=== PATIENT | female | born 1965 | race Caucasian/White ===

== ENCOUNTER 2016-10-27 13:22 | Inpatient (IN) | payer OTHER ==
[~2016-10-27] VITALS: Ht 162.6 cm; Wt 122.8 kg
--- NOTE | ~2016-10-27 | EKG ---
PATIENT: MARC GOMES UNIT #: [id number] Ventricular Rate: 91 BPM Atrial Rate: 91 BPM P-R Interval: 180 ms QRS Duration: 80 ms Q-T Interval: 358 ms QTC Calculation(Bezet): 440 ms P [place]: 69 degrees Calculated R [place]: 46 degrees Calculated T [place]: 56 degrees Diagnosis Line: Normal sinus rhythm Diagnosis Line: Right atrial enlargement Diagnosis Line: Borderline ECG Diagnosis Line: No previous ECGs available Diagnosis Line: Confirmed by MITRA BANKS MD ([id number]) on 10/27/2016 Diagnosis Line: 6:06:27 PM INTERPRETING MD: DARREN MOTLEY
--- NOTE | ~2016-10-27 | US77 ---
[facility] A Service of [facility] RADIOLOGY TEXT RESULTS PATIENT: MARC GOMES LOCATION: [facility] 319-01 : 63 UNIT #: [id number] AGE: [address]: Bill Parker MD SEX: F ORDER DR: [id number] [facility] [address] [facility]. [place], [place] [address] [id number] I MR#: [id number] Acc #: [id number] NAME: MARC GOMES. : 1965 SEX: F STUDY DATE/TIME: 10/28/2016 17:05 UNIT: [address] [place] [address] ROOM: [facility] STUDY DESCRIPTION: US Kidney Bilateral Complete Attending Physician: Linh Parker M.D. Ordering Physician: Dena Noguera M.D. Primary Care Physician: Primary Care Physician No MEDICAL IMAGING REPORT This report is preliminary unless electronic signature is present EXAM Renal ultrasound complete 10/28/2016 HISTORY Incontinence and flank pain, back pain for 1 year worsening 4 days ago. Diabetes, hypertension and hyperlipidemia. Abnormal renal function tests. Elevated BUN of 49, elevated creatinine of 2.7. Abnormally low GFR of 19.6 today. Acute renal insufficiency. FINDINGS The right kidney is poorly visualized due to excessive bowel gas. The left kidney measures 10.7 cm in longitudinal dimensions. There is no evidence of hydronephrosis or nephrolithiasis. No cystic or solid mass lesions are seen on the left kidney and there is normal renal cortical echogenicity. Images of the bladder are normal. IMPRESSION 1. Exam is limited as the right kidney was poorly visualized. 2. The left kidney is normal in appearance. 3. The bladder is normal in appearance. Dictated by... Rcoael Mcfadden M.D. THIS IS AN ELECTRONICALLY VERIFIED REPORT Rocael Mcfadden M.D. at 10/29/2016 2:15 PM WILBERTO/laura TD: 10/29/2016 09:17 JOB #: [id number] MEDICAL IMAGING REPORT [facility] A Service of [facility] RADIOLOGY TEXT RESULTS PATIENT: MARC GOMES LOCATION: [facility] 319-01 : 63 UNIT #: [id number] AGE: [address]: iBll Parker MD SEX: F ORDER DR: Page 1 of 1 COPY
--- NOTE | ~2016-10-27 | CO ---
Unit #: [id number] #: [id number] Patient: MARC GOMES [id number] [facility]. [place], [place] [address] [id number] I MR#: [id number] NAME: MARC GOMES ROOM: 319 Age: 50 Sex: F Admission Date: 10/27/2016 : 1965 Attending Physician: Linh Parker M.D. Primary Care Physician: No Primary Care Physician CONSULTATION REPORT HISTORY OF PRESENT ILLNESS This is a 50-year-old lady with a past medical history of hypertension, diabetes mellitus, muscular spinal history, history of anxiety, with possible history of COPD, who presents with a fall from a picnic table approximately two days ago. No issues. However, this morning the patient woke up with significant back pain, difficulty walking and complained of worsening shortness of air, therefore she presents to the ER with complaint, going around both sides of the back. The lumbar spine and hip x-rays were unremarkable. Patient was not having any fevers, no chills, no sweats, no nausea, no vomiting, no constipation, no lightheadedness. She was having difficulty walking. The right leg was not moving properly so she had to prop herself up. Patient has no particular position where it hurts. She is not having any cough. She is not having any productive sputum. Patient was noted to have elevated renal insufficiency. Patient had a previous history of renal insufficiency; however, she never followed up and has not had any problems since per her. The patient has a history of diabetes mellitus, otherwise no issues. She is being admitted for renal insufficiency, back strain and possible COPD exacerbation. REVIEW OF SYSTEMS Review of systems is as per the history of present illness. PAST MEDICAL HISTORY Past medical history is significant for chronic hypertension, diabetes mellitus, episode of renal insufficiency, questionable history of COPD. PAST SURGICAL HISTORY Surgical history is negative. SOCIAL HISTORY The patient is a former smoker, denies alcohol, denies any sort of polysubstance use. FAMILY HISTORY Patient has a family history of lung cancer and a mother who had chronic hypertension. PHYSICAL EXAMINATION VITAL SIGNS: T-current 98.8, pulse 112, respiratory rate 22, blood pressure 110/64, sating 94% on 2 L nasal cannula. Ins and outs 500 in, x2 urine out. HEENT: Extraocular movements are intact. The patient is Mallampati III. NECK: Neck is greater than 16 inches in circumference. Unit #: [id number] #: [id number] Patient: MARC GOMES CHEST: Shows decreased breath sounds bilaterally. CARDIOVASCULAR EXAM: Regular rate, no gallop. ABDOMEN: Soft, nontender and nondistended. EXTREMITIES: Show edema +1 to +2. SKIN: Patient has some flushing of the face and neck. This appears to be more than usual. Patient denies itchiness, fevers. DIAGNOSTIC STUDIES LABORATORY: The white count is 6.8, hemoglobin 14.3, platelets of 321, BUN and creatinine 49/2.7, glucose 352, 486. ASSESSMENT AND PLAN 1. Acute renal insufficiency, elevated BUN and creatinine: Patient may be somewhat dehydrated. The creatine kinase was only 178 so there is no much concern for rhabdo. Patient is being gently hydrated. Nephrology is seeing. 2. Diabetes: Patient has elevated hemoglobin A1C at 11.1. Will need to increase the sliding scale insulin. 3. Possible pneumonia: We are waiting on procalcitonin. 4. Chronic obstructive pulmonary disease: The patient is being treated with azithromycin, nebs and Solu-Medrol. Thank you very much for this consult and allowing us to participate in the care of this patient. Dictated by... Linh Parker M.D. IAN/rosa TD: 10/28/2016 17:53 JOB #: [id number] CONSULTATION REPORT Page 1 of 1 X Bill Parker MD CONSULTATION REPORT
--- NOTE | ~2016-10-27 | CR181 ---
[facility] A Service of [facility] RADIOLOGY TEXT RESULTS PATIENT: MARC GOMES LOCATION: [facility] 319-01 : 63 UNIT #: [id number] AGE: [address]: Bill Parker MD SEX: F ORDER DR: [id number] [facility] [address] [facility]. [place], [place] [address] [id number] E MR#: [id number] Acc #: [id number] NAME: MARC GOMES : 1965 SEX: F STUDY DATE/TIME: 10/27/2016 16:14 UNIT: [facility] ROOM: STUDY DESCRIPTION: CR Lumbar Spine 2 or 3 Views Attending Physician: Bertha Gutierrez M.D. Ordering Physician: Bertha Gutierrez M.D. Primary Care Physician: Primary Care Physician No MEDICAL IMAGING REPORT This report is preliminary unless electronic signature is present EXAM Three views lumbar spine. DATE 10/27/2016 HISTORY Low back pain since yesterday. Patient fell. COMPARISON CT abdomen and pelvis bone windows 03/20/2015. FINDINGS There is approximately 8 mm anterolisthesis of L5 upon S1, which is not thought to be significantly changed from the CT of the abdomen and pelvis of 03/20/2015. There is mild diminished disc height at this level. No spondylolytic defects are seen. Findings may be the result of degenerative facet arthropathy, which can also be seen to better advantage at L5-S1 on the previous CT exam. No acute fracture is seen. There is degenerative endplate spurring and sclerosis at T10-11. IMPRESSION 1. Grade I anterolisthesis L5 upon S1 thought to be the result of degenerative facet arthropathy at that level, with mild diminished disc height at L5-S1. The findings are thought to be similar to the 03/20/2015 CT abdomen and pelvis bone windows. 2. No acute lumbar spine findings. Dictated by... [facility] A Service of [facility] RADIOLOGY TEXT RESULTS PATIENT: MARC GOMES LOCATION: [facility] 319-01 : 63 UNIT #: [id number] AGE: [address]: Bill Parker MD SEX: F ORDER DR: Jen Gresham M.D. THIS IS AN ELECTRONICALLY VERIFIED REPORT Jen Gresham M.D. at 10/28/2016 9:55 AM LLH/michelle TD: 10/27/2016 19:03 JOB #: [id number] MEDICAL IMAGING REPORT Page 1 of 1 COPY
--- NOTE | ~2016-10-27 | CR72 ---
[facility] A Service of [facility] RADIOLOGY TEXT RESULTS PATIENT: MARC GOMES LOCATION: [facility] 319-01 : 63 UNIT #: [id number] AGE: [address]: Bill Parker MD SEX: F ORDER DR: [id number] [facility] [address] [facility]. [place], [place] [address] [id number] I MR#: [id number] Acc #: [id number] NAME: MARC GOMES : 1965 SEX: F STUDY DATE/TIME: 10/28/2016 6:22 UNIT: [address] ROOM: [facility] STUDY DESCRIPTION: CR Chest Single View Portable Attending Physician: Linh Parker M.D. Ordering Physician: Linh Parker M.D. Primary Care Physician: No Primary Care Physician MEDICAL IMAGING REPORT This report is preliminary unless electronic signature is present EXAM Portable chest, 10/28 INDICATION Shortness of air, COPD. Symptoms for 1 day. Patient had a fall yesterday. FINDINGS AP portable chest is compared with 10/27/2016. Heart remains enlarged. Lung volumes remain low. There is continued linear scarring or atelectasis right midlung and left base. No pneumothorax is seen. There is an old left posterolateral seventh rib fracture. IMPRESSION Stable cardiomegaly with low-volume inspiration. Stable linear atelectasis or scar right mid lung and left base. Dictated by... Froy Meredith Jr., M.D. THIS IS AN ELECTRONICALLY VERIFIED REPORT Froy Meredith Jr., M.D. at 10/28/2016 3:47 PM RAFAELA/jayant TD: 10/28/2016 10:19 JOB #: [id number] MEDICAL IMAGING REPORT Page 1 of 1 COPY
--- NOTE | ~2016-10-27 | DS ---
Unit #: [id number] #: [id number] Patient: MARC GOMES [id number] [address] [place], [place] [address] [id number] I MR#: [id number] NAME: MARC GOMES. ROOM: 319 Age: 50 Sex: F Admission Date: 10/27/2016 : 1965 Discharge Date: 11/02/2016 Attending Physician: Linh Parker M.D. DISCHARGE SUMMARY REASON FOR ADMISSION 1. Back pain. 2. Chronic obstructive pulmonary disease exacerbation. 3. Acute renal insufficiency. 4. Poorly-controlled hypertension. HISTORY OF PRESENT ILLNESS This is a 50-year-old lady with a history of COPD who presented to the emergency room complaining of significant back pain. She had fallen off of a bench earlier. There was no evidence of significant swelling of the back. She did not have any trauma to her spine. The patient was short of breath; therefore, she was admitted for an episode of acute bronchitis. Creatinine is 3.5. Patient has a history of having elevated creatinine, however, has not followed up with primary care or Nephrology in three years since that last episode. HOSPITAL COURSE Chronic obstructive pulmonary disease. Patient was put on steroids and a short course of azithromycin. There was no evidence of significant cough productive of sputum. Therefore, after five days his azithromycin was discontinued. Patient was changed to oral steroids. These slowly decreased and will be sent home on a taper. Acute renal insufficiency. Appreciate Dr. Noguera's consultation. The patient was gently hydrated. There is likely some chronic renal insufficiency on top of acute. Patient improved. The patient's lisinopril was restarted at the end of the stay to get her blood pressure under control. Back pain. Patient was placed on Flexeril and has not complained of back pain throughout her hospital stay. Hypertension. Patient's discharge was delayed for several days due to poorly-controlled diastolic hypertension. Appreciate Dr. Noguera's assistance. Started on hydralazine, started on Lasix, and then her lisinopril was restarted toward the end of her hospital stay. DISCHARGE MEDICATIONS 1. Albuterol 2 puffs q.4 hours as needed for shortness of breath. 2. Gabapentin 300 mg p.o. twice daily. 3. Sertraline 100 mg daily. 4. Metformin 500 mg daily before breakfast. 5. Symbicort 2 puffs b.i.d. Unit #: [id number] #: [id number] Patient: MARC GOMES 6. Ibuprofen p.r.n. 7. Meloxicam 15 mg p.o. daily p.r.n. 8. Cyclobenzaprine 10 mg p.o. twice daily p.r.n. for 10 days. 9. Vitamin D 2000 units p.o. daily. 10. Amlodipine 10 mg p.o. daily. 11. Fenofibrate 145 mg p.o. daily. 12. Crestor 40 mg at bedtime. 13. Lisinopril 40 mg daily. 14. Hydralazine 25 mg p.o. 3 times daily. 15. Furosemide 20 mg p.o. daily. DIET Patient is to have a no concentrated sweets diet. FOLLOWUP 1. With primary care doctor within two weeks. 2. With our office in approximately three weeks. 3. With Dr. Noguera in approximately three to four weeks. 1. Dictated by... Cassidy Rubin TD: 11/03/2016 20:34 JOB #: [id number] DISCHARGE SUMMARY Page 1 of 1 X Bill Parker MD X DISCHARGE SUMMARY
--- NOTE | ~2016-10-27 | BMI ---
[facility] Nutrition Therapy DATE: 10/28/16 Patient: MARC GOMES Physician: SANTO Address: [address] [place] [address] Room/Bed: [address] [place] [address], Zip: [place] [address] Admit Date: 10/27/16 Date of : [birth year] Height: 5 4 Weight: 265 120.2 HIGH BMI NOTE: ANTHROPOMETRICS: HT: 64" WT: 120.2 KG BMI: 45.5 DIET: CONSISTENT CARBOHYDRATE RECOMMENDATIONS: 1. ADD A HEART HEALTHY DIET RESTRICTION TO PROMOTE GRADUAL WEIGHT LOSS TOWARDS A HEALTHY BMI. Respectfully, DELANO ENAMORADO RD, LD Food and Nutritional Services [facility] [place] [facility] cc: client file
--- NOTE | ~2016-10-27 | CO ---
Unit #: [id number] #: [id number] Patient: MARC GOMES [id number] [address] [address] [id number] I MR#: [id number] NAME: MARC GOMES. ROOM: 319 Age: 50 Sex: F Admission Date: 10/27/2016 : 1965 Attending Physician: Linh Parker M.D. Consultation Date: 10/28/2016 CONSULTATION REPORT REASON FOR CONSULTATION Renal insufficiency. Thank you very much for asking me to see this patient in consultation. HISTORY OF PRESENT ILLNESS Ms. Gomes is a 50-year-old female, who has a history of diabetes for approximately 10 years, history of hypertension, history of obesity, who presented to the hospital with lower back pain as well as some increased shortness of breath. She was admitted for possible COPD exacerbation. She was noted upon presentation to have a BUN and creatinine of 47 and 3.9. Because of this, I was asked to see the patient. 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 In reviewing of her records in 03/2015, showed a creatinine of 1.1. At that time, she had a urinalysis showed no rbc's or wbc's, although she had 1+ protein and 100 of glucose in her urine. In 11/2006, showed a creatinine of 1.0. She has been on Mobic and intermittent ibuprofen in the past and she says mainly Mobic in last 3+ weeks, although "it does not help." She states she did have a lot of nausea, vomiting, and occasional diarrhea on Friday, but that improved over the weekend. She denies any chest pain, any severe abdominal pain. She denies any burning when she urinates, but she states she urinates "a lot." PAST MEDICAL HISTORY History of diabetes mellitus x10 years, history of hypertension, history of hyperlipidemia, history of esophagitis. MEDICATIONS At home include Neurontin 600 mg b.i.d., Zestril 20 mg a day, metformin, Mobic, fenofibrate, Crestor. Here, she is on Zoloft was 200 mg a day, I lowered it to 100 mg a day. She is on Pepcid, amlodipine 10 mg a day, vitamin D, Zithromax, Lovenox, insulin, and Solu-Medrol. FAMILY HISTORY Noncontributory. SOCIAL HISTORY She still smokes. She says she occasional drinks alcohol maybe 2 to 3 drinks a week or so. She denies any IV drugs. REVIEW OF SYSTEMS She denies any fevers, chills, visual problems, sinus problems, cough, hemoptysis, sore throat, difficulty swallowing. No neck pain or neck Unit #: [id number] #: [id number] Patient: MARC GOMES stiffness. No chest pain, chest heaviness, or palpitations. She has some increasing shortness of breath, although she says it has been going on for a while. She denies any abdominal pain. She did have nausea and vomiting. No significant diarrhea may be a little bit. She denies any burning when she urinates. She denies any lower extremity swelling. She denies any recent seizures or strokes. PHYSICAL EXAMINATION VITAL SIGNS: T-max is 98.8, pulse 84 to 112, blood pressure 97 to 127 over 59 to 109. HEENT: She is normocephalic and atraumatic. Pupils are equal, round, and reactive to light. Extraocular muscles are intact. Hearing appears to be normal. Mouth is clear. No erythema. No exudate. NECK: Supple. No JVD. CARDIAC: She has regular rhythm without a rub. No S3 or S4. LUNGS: Sound fairly clear bilaterally. ABDOMEN: Obese, bowel sounds positive, nontender, soft. EXTREMITIES: She has no lower extremity swelling. Her pulses are intact in lower extremities. JOINTS: No joint pain or joint swelling. SKIN: She has sunburn on her face and shoulders. : Deferred. DIAGNOSTIC STUDIES LABORATORY RESULTS: Yesterday showed sodium 133, potassium 4.9, chloride is 96, bicarb is 23, BUN and creatinine 47 and 3.9 with a glucose of 178, calcium is 10.0, albumin is 4.2, alkaline phosphatase 41. CPK is 178. Hemoglobin A1c is 11. Hemoglobin is 14.3, white count 6800, platelets 321,000. Today her BUN creatinine 49 and 2.7 with a sodium is 128 with a glucose up to 347, potassium 5.3, bicarb is 21, calcium is 10.2. IMAGING STUDIES: Chest x-ray showed cardiomegaly. ASSESSMENT AND PLAN 1. Acute kidney injury. This is a lady who has acute renal failure most likely related to combination of Mobic volume depletion on top of an MARIALUISA inhibitor, also possible osmotic diuresis from hyperglycemia versus other. Certainly, her creatinine is improved some today. I agree with IV fluids and normal saline currently. She did have 1+ protein a year or so ago and she could have some underlying diabetic nephropathy as well. Due to the hypercalcemia and the acute renal insufficiency, I would like to check serum protein immunofixation, I would like to check a repeat UA, culture and sensitivity, check urine random protein to creatinine, check urine sodium. Follow strict I's and Os and will continue to follow. I am going to go ahead and check some serology studies, although she had no hematuria 1-1/2 years ago. I want to check some KALPANA, ANCA, anti-GBM, C3 and C4 as well, just to rule out other causes of renal insufficiency. For now, I agree with holding her Zestril, but once her renal function and volume status improves, we will certainly restart that. We will try to avoid nonsteroidals, Mobic, Celebrex, etc. in the future. We will check renal ultrasound to rule out obstruction and other gross abnormalities and we will follow. 2. Hyperkalemia. The patient's potassium is 5.3, that is most likely related to hyperglycemia and acidosis and should correct as her sugars improve. 3. Hyponatremia. The patient with low sodium. Again, most likely Unit #: [id number] #: [id number] Patient: MARC GOMES related to cellular shifts from hyperglycemia and renal insufficiency. She is now on normal saline and should improve as sugars improved as well. 4. Diabetes mellitus. 5. Hypertension. Again, hold MARIALUISA inhibitor for now until renal function improves and then restart. 6. Shortness of breath, possible chronic obstructive pulmonary disease exacerbation versus other. We will defer workup and treatment to Pulmonary. Dictated byJie Noguera M.D. NGHIA/gerard TD: 10/29/2016 02:29 JOB #: [id number] CONSULTATION REPORT Page 1 of 1 X Anamaria Noguera MD CONSULTATION REPORT
--- NOTE | ~2016-10-27 | A ---
[facility] Nutrition Therapy DATE: 10/29/16 Patient: MARC GOMES Physician: SANTO Address: [address] [place] [address] Room/Bed: [address] [place] [address], Zip: [place] [address] Admit Date: 10/27/16 Date of : [birth year] Height: 5 4 Weight: 272 123.4 NUTRITIONAL ASSESSMENT: REASON: Consult for diabetic diet education 50 yo female admitted for COPD exacerbation PMH: COPD, DM, HTN Labs: Accuchecks [id number] HgbA1C 11.1% Assessment: Chart reviewed, events noted. RD spoke with the pt at bedside regarding her diet. Pt admitted that she needs to practice better portion control and avoid intake of sugary beverages. RD provided extensive consistent carbohydrate diet education with printed materials for the pt's reference. Pt voiced understanding of the information, and demonstrated desire to make changes to her diet. Based on interview with the pt, she would benefit from following up with an outpatient RD for accountability. Recommendations: 1. Continue consistent carbohydrate diet as tolerated. 2. Encourage diet compliance upon discharge. 3. Pt would benefit from seeing an outpatient RD for follow up and accountability. Please consult RD for any further nutritional needs. Respectfully, DELANO ENAMORADO RD, LD Food and Nutritional Services [facility] cc: client file
--- NOTE | ~2016-10-27 | CR72 ---
[facility] A Service of [facility] RADIOLOGY TEXT RESULTS PATIENT: MARC GOMES LOCATION: [facility] 319-01 : 63 UNIT #: [id number] AGE: [address]: Bill Parker MD SEX: F ORDER DR: [id number] [facility] [address] [facility]. [place], [place] [address] [id number] MR#: [id number] Acc #: [id number] NAME: MARC GOMES : 1965 SEX: F STUDY DATE/TIME: 10/27/2016 14:48 UNIT: [facility] ROOM: STUDY DESCRIPTION: CR Chest Single View Portable Attending Physician: Bertha Gutierrez M.D. Ordering Physician: Bertha Gutierrez M.D. Primary Care Physician: No Primary Care Physician MEDICAL IMAGING REPORT This report is preliminary unless electronic signature is present EXAM AP portable chest DATE 10/27/2016 HISTORY Chest pain, cough and congestion since last night. Fell. COMPARISON CT chest 03/20/2015. FINDINGS Linear opacity in the right mid lung may represent subsegmental atelectasis or scarring. No dense lung consolidations are seen. There is mild cardiac enlargement. Pulmonary vascular distribution is normal. No pleural effusion or pneumothorax is seen. No acute osseous abnormalities are identified. Study is mildly degraded secondary to patient body habitus. IMPRESSION 1. Mild cardiomegaly. 2. Minimal linear scarring versus subsegmental atelectasis in right mid lung. Dictated by... Jen Gresham M.D. THIS IS AN ELECTRONICALLY VERIFIED REPORT Jen Gresham M.D. at 10/28/2016 9:[address] [facility] A Service [facility] RADIOLOGY TEXT RESULTS PATIENT: MARC GOMES LOCATION: [facility] 319-01 : 63 UNIT #: [id number] AGE: [address]: Bill Parker MD SEX: F ORDER DR: TD: 10/27/2016 17:05 JOB #: [id number] MEDICAL IMAGING REPORT Page 1 of 1 COPY
[~2016-10-27 13:22] MED LIST: KEFLEX; LASIX; LISINOPRIL PO; METFORMIN
[2016-10-27 14:39] LABS: BASOPHIL# 0.1 X10e3 (0-0.3); BASOPHIL% 0.7 % (0-2.5); EOSINOPHIL# 0.2 X10e3 (0-0.7); HEMATOCRIT 43.4 % (35.0-45.0); HEMOGLOBIN 14.9 gm/dL (12.0-16.0); LYMPHOCYTE# 3.1 X10e3 (1.0-3.5); LYMPHOCYTE% 27.4 % (17.0-45.0); MEAN CELL VOLUME 89.4 FL (83-96); MEAN CORPUSCULAR HEMOGLOBIN 30.6 PG (28-34); MEAN CORPUSCULAR HGB CONC 34.2 g/dL (30-36); MEAN PLATELET VOLUME 8.4 FL (6.5-11.5); MONOCYTE% 8.5 % (3.0-12.0); NEUTROPHIL# 6.9 X10e3 (1.5-7.1); NEUTROPHIL% 61.4 % (40-75); PLATELET COUNT 361 X10e3 (140-420); RED BLOOD COUNT 4.86 X10e (3.90-5.30); RED CELL DISTRIBUTION WIDTH 14.2 % (11.0-15.5); WHITE BLOOD COUNT 11.3 X10e3 (4.0-10.5)
[2016-10-27 14:40] LABS: DIFF IND NO
[2016-10-27 14:52] LABS: INR 0.9
[2016-10-27 15:17] LABS: ALCOHOL BLOOD <5 mg/dL (0); BLOOD UREA NITROGEN 47 mg/dL (9-23); BUN/CREATININE RATIO 12.05; CALCIUM SERUM 10.3 mg/dL (8.4-10.2); CARBON DIOXIDE 23 mmol/L (22-31); CHLORIDE 96 mmol/L (100-111); CREATININE SERUM 3.9 mg/dL (0.6-1.4); GLOM FILT RATE Estimated 12.6 mL/min (>60); GLUCOSE FASTING 178 mg/dL (70-110); POTASSIUM 4.9 mmol/L (3.5-5.1); SODIUM 133 mmol/L (135-145)
[2016-10-28 05:43] LABS: BASOPHIL% 0.2 % (0-2.5); HEMATOCRIT 42.2 % (35.0-45.0); HEMOGLOBIN 14.3 gm/dL (12.0-16.0); LYMPHOCYTE# 0.8 X10e3 (1.0-3.5); LYMPHOCYTE% 11.4 % (17.0-45.0); MEAN CELL VOLUME 89.6 FL (83-96); MEAN CORPUSCULAR HEMOGLOBIN 30.3 PG (28-34); MEAN CORPUSCULAR HGB CONC 33.8 g/dL (30-36); MEAN PLATELET VOLUME 8.2 FL (6.5-11.5); MONOCYTE# 0.1 X10e3 (0-1.0); MONOCYTE% 1.4 % (3.0-12.0); NEUTROPHIL# 5.9 X10e3 (1.5-7.1); PLATELET COUNT 321 X10e3 (140-420); RED BLOOD COUNT 4.71 X10e (3.90-5.30); RED CELL DISTRIBUTION WIDTH 14.1 % (11.0-15.5); WHITE BLOOD COUNT 6.8 X10e3 (4.0-10.5)
[2016-10-28 05:55] LABS: DIFF IND NO
[2016-10-28 06:39] LABS: ALBUMIN SERUM 4.2 g/dL (3.5-5.0); BILIRUBIN,TOTAL 0.5 mg/dL (0.2-2.0); BUN/CREATININE RATIO 18.14; CALCIUM SERUM 10.2 mg/dL (8.4-10.2); CREATININE SERUM 2.7 mg/dL (0.6-1.4); GLOM FILT RATE Estimated 19.6 mL/min (>60); MAGNESIUM 2.5 mg/dL (1.6-3.0); PHOSPHOROUS 4.1 mg/dL (2.5-4.6); POTASSIUM 5.3 mmol/L (3.5-5.1); PROTEIN TOTAL SERUM 7.4 g/dL (6.0-8.3)
[2016-10-28] MEDS ORDERED: IBUPROFEN800 MG PO (11:09)
[2016-10-28] MEDS ORDERED: FENOFIBRATE145 M1 PO (11:10)
[2016-10-28] MEDS ORDERED: VITAMIN D2000 UNIT PO (11:11)
[2016-10-28] MEDS ORDERED: METFORMIN HCL500 M3 PO (11:11)
[2016-10-28] MEDS ORDERED: CRESTOR40 MG PO (11:11)
[2016-10-28] MEDS ORDERED: ZOLOFT100 MG PO (11:12)
[2016-10-28] MEDS ORDERED: MOBIC15 MG PO (11:12)
[2016-10-28] MEDS ORDERED: NEURONTIN600 MG PO (11:13)
[2016-10-28] MEDS ORDERED: LISINOPRIL20 MG PO (11:13)
[2016-10-28] MEDS ORDERED: NORVASC10 MG PO (11:13)
[2016-10-28] MEDS ORDERED: ALBUTEROL17 GM INH (11:14)
[2016-10-28 18:34] LABS: BUN/CREATININE RATIO 23.33; CALCIUM SERUM 9.5 mg/dL (8.4-10.2); CREATININE SERUM 2.1 mg/dL (0.6-1.4); GLOM FILT RATE Estimated 26.6 mL/min (>60); POTASSIUM 4.5 mmol/L (3.5-5.1)
[2016-10-28 19:18] LABS: CREATININE,RANDOM URINE 30 mg/dL; SODIUM URINE RANDOM 22 mmol/L; TOTAL PROTEIN,RANDOM URINE 10 mg/dl (<10)
[2016-10-28 19:42] LABS: URINE APPEARANCE CLEAR; URINE BILIRUBIN NEG (NEG); URINE BLOOD NEG (NEG); URINE COLOR YELLOW; URINE GLUCOSE >1000 MG/DL (NEG); URINE KETONE NEG (NEG); URINE LEUKOCYTE ESTERASE NEG (NEG); URINE NITRATE NEG (NEG); URINE PH 5.5 (5-8); URINE PROTEIN NEG (NEG); URINE SPECIFIC GRAVITY 1.017 (1.003-1.035); URINE UROBILINOGEN 0.2 MG/DL (NEG)
[2016-10-29 06:49] LABS: ALBUMIN SERUM 3.9 g/dL (3.5-5.0); BILIRUBIN,TOTAL 0.3 mg/dL (0.2-2.0); BUN/CREATININE RATIO 33.57; CALCIUM SERUM 9.3 mg/dL (8.4-10.2); CREATININE SERUM 1.4 mg/dL (0.6-1.4); GLOM FILT RATE Estimated 43.4 mL/min (>60); MAGNESIUM 2.5 mg/dL (1.6-3.0); POTASSIUM 4.8 mmol/L (3.5-5.1); PROTEIN TOTAL SERUM 6.8 g/dL (6.0-8.3)
[2016-10-30 06:47] LABS: BUN/CREATININE RATIO 35.45; CALCIUM SERUM 9.4 mg/dL (8.4-10.2); CREATININE SERUM 1.1 mg/dL (0.6-1.4); GLOM FILT RATE Estimated 58.1 mL/min (>60)
[2016-10-30 06:50] LABS: POTASSIUM 5.5 mmol/L (3.5-5.1)
[2016-10-31 05:16] LABS: BASOPHIL# 0.1 X10e3 (0-0.3); BASOPHIL% 0.7 % (0-2.5); EOSINOPHIL% 0.1 % (0.0-7.0); HEMATOCRIT 44.3 % (35.0-45.0); HEMOGLOBIN 14.7 gm/dL (12.0-16.0); LYMPHOCYTE# 1.6 X10e3 (1.0-3.5); LYMPHOCYTE% 14.9 % (17.0-45.0); MEAN CELL VOLUME 89.4 FL (83-96); MEAN CORPUSCULAR HEMOGLOBIN 29.6 PG (28-34); MEAN CORPUSCULAR HGB CONC 33.1 g/dL (30-36); MEAN PLATELET VOLUME 8.3 FL (6.5-11.5); MONOCYTE# 0.6 X10e3 (0-1.0); MONOCYTE% 6.1 % (3.0-12.0); NEUTROPHIL# 8.1 X10e3 (1.5-7.1); NEUTROPHIL% 78.2 % (40-75); PLATELET COUNT 322 X10e3 (140-420); RED BLOOD COUNT 4.96 X10e (3.90-5.30); WHITE BLOOD COUNT 10.4 X10e3 (4.0-10.5)
[2016-10-31 05:23] LABS: DIFF IND NO
[2016-10-31 06:36] LABS: COMPLEMENT C3 181 mg/dL (90-180); COMPLEMENT C4 46 mg/dL (16-47)
[2016-10-31 06:58] LABS: CALCIUM SERUM 9.5 mg/dL (8.4-10.2); CREATININE SERUM 0.8 mg/dL (0.6-1.4); GLOM FILT RATE Estimated 85.4 mL/min (>60); MAGNESIUM 1.7 mg/dL (1.6-3.0); POTASSIUM 4.3 mmol/L (3.5-5.1)
[2016-11-01 05:53] LABS: CALCIUM SERUM 9.8 mg/dL (8.4-10.2); GLOM FILT RATE Estimated 65.2 mL/min (>60); POTASSIUM 4.6 mmol/L (3.5-5.1)
[2016-11-02] MEDS ORDERED: GABAPENTIN300 MG PO (13:04)
[2016-11-02] MEDS ORDERED: MOBIC PO (13:05)
[2016-11-02] MEDS ORDERED: IBUPROFEN800 MG PO (13:07)
[2016-11-02] MEDS ORDERED: PREDNISONE10 M1 PO (13:08)
[2016-11-02] MEDS ORDERED: DULERA 200 MCG/13 GM INH ×2 (13:09→13:10)
[2016-11-02] MEDS ORDERED: FLEXERIL10 MG PO (13:11)
[2016-11-02] MEDS ORDERED: LASIX20 MG PO (13:11)
[2016-11-02] MEDS ORDERED: HYDRALAZINE HCL25 MG PO (13:11)
[2016-11-02 22:48] LABS: ANA SCREEN Negative (Negative); MYELOPEROXIDASE AB (PNL) <1.0 AI (<1.0); PROTEINASE-3 AB (PNL) <1.0 AI (<1.0)
== END 2016-11-02 13:46 | disposition home or self-care (01) | DRG 683 ==
LOC: CED 13:22 → C3A PCU 17:30 → CED 17:52 → C3A PCU 17:52
PROVIDERS: Emergency Medicine; Internal Medicine Nephrology; Internal Medicine Pulmonary Disease
DX: N17.9 Acute kidney failure, unspecified (principal); J44.1 Chronic obstructive pulmonary disease with (acute) exacerbation; J44.0 Chronic obstructive pulmonary disease with (acute) lower respiratory infection; E11.22 Type 2 diabetes mellitus with diabetic chronic kidney disease; E87.1 Hypo-osmolality and hyponatremia; J20.9 Acute bronchitis, unspecified; M54.9 Dorsalgia, unspecified; I12.9 Hypertensive chronic kidney disease with stage 1 through stage 4 chronic kidney disease, or unspecified chronic kidney disease; N18.9 Chronic kidney disease, unspecified; Z79.84 Long term (current) use of oral hypoglycemic drugs; F17.200 Nicotine dependence, unspecified, uncomplicated; E83.52 Hypercalcemia; E87.5 Hyperkalemia
CPT/HCPCS: 36415; 71010; 72100; 76770; 80048; 80053; 81003; 82308; 82550; 82570; 82947; 83036; 83520; 83735; 84100; 84156; 84300; 85025; 85610; 86021; 86038; 86039; 86160; 86334; 87633; 90732; 93005; 94640; 94760; 96374; 99285; G0009; G0480; J0360; J0456; J1650; J1815; J2920; J2930